=== PATIENT | female | born 1945 | race Caucasian/White ===

== ENCOUNTER 2020-02-21 10:22 | Outpatient (CLI) | payer MEDICARE ==
--- NOTE | 2020-02-21 12:19 | CT ---
CT ABDOMEN AND PELVIS WITH IV CONTRAST 02/21/2020 CLINICAL INFORMATION: Lower abdominal pain for past 2 weeks. COMPARISON: None. Technique: Multiple contiguous axial CT images are obtained through the abdomen and pelvis with IV contrast. Cor onal reformatted images are provided. FINDINGS: Lower Chest: Dependent bibasilar atelectasis is present. Vessels: Vascular calcifications involving the distal thoracic aorta and abdominal aorta. Incidental note is made of a circumaortic left renal vein. Abdomen: Portal vein:Patent Gallbladder: Gallbladder is not visualized and likely surgically absent. The common duct is mildly di lated measuring 1.1 cm with evidence of intrahepatic biliary ductal dilatation. Findings are probably attributable to reservoir effect. Liver: within normal limits. Spleen: within normal limits. Pancreas: within normal limits. Adrenals: within normal limits. Kidneys: There is a large lobulated exophytic hypodense lesion involving the midportion right kidney measuring 7.6 cm x 5.9 cm which does demonstrate fluid attenuation compatible with a cyst. A smaller 0.8 cm low-attenuation cystic lesion midportion left kidney is present compatible with a cyst as well. Additional subcentimeter too small to characterize hypodense lesions are seen in the left kidney. Bowel: Multiple colonic diverticula are seen throughout the colon. There is focal wall thickening inv olving a portion of the descending colon with adjacent pericolonic inflammatory stranding, and findings are likely attributable to diverticulitis. Appendix: Not visualized. Patient reports history of prior appendectomy. Peritoneum: No ascites or free air; no fluid collection. Mesentery and Retroperitoneum: No enlarged mesenteric or retroperitoneal lymph nodes. Abdominal Wall: within normal limits. Pelvis: Reproductive Organs: Evidence of hysterectomy. Bladder: within normal limits. Bones: Degenerative changes are seen in the spine. There is trace retrolisthesis of L3 on L4 with tra ce grade 1 anterolisthesis of L4 on L5. A hemangioma is seen in the L2 vertebral body. No suspicious lytic or sclerotic osseous lesions are seen. IMPRESSION: 1. Diverticulitis involving the descending colon without free intraperitoneal gas or evidence of absc ess formation. Follow-up evaluation is recommended given focal colonic wall thickening which is again likely attributable to diverticulitis. 2. Postoperative changes related to cholecystectomy and hysterectomy. 3. Large right renal cyst with small left renal cyst and additional too small to characterize hypoden se lesions left kidney.
== END 2020-02-21 10:23 | disposition home or self-care (01) ==
LOC: SCSCT 10:22
PROVIDERS: ATTEND Internal Medicine
DX: R10.9 Unspecified abdominal pain (principal); K57.32 Diverticulitis of large intestine without perforation or abscess without bleeding; N28.1 Cyst of kidney, acquired; R93.422 Abnormal radiologic findings on diagnostic imaging of left kidney; Z98.890 Other specified postprocedural states; Z90.49 Acquired absence of other specified parts of digestive tract; Z90.710 Acquired absence of both cervix and uterus
CPT/HCPCS: 74177; 82565